=== PATIENT | male | born 1975 | race Caucasian/White ===

== ENCOUNTER → 2018-02-19 12:44 | Outpatient (CLI) | payer OTHER, SELFPAY ==
[2018-02-19 13:23] LABS: CPK Total, Creatine Kinase 231 U/L (39-308)
== END ==
PROVIDERS: Family Provider Family Medicine; PCP Family Medicine; Visit Provider Nurse Practitioner Family
DX: R07.9 Chest pain, unspecified (principal); R25.2 Cramp and spasm
CPT/HCPCS: 82550; 83735; 84484

== ENCOUNTER 2018-09-29 13:42 | Emergency (ER) | payer OTHER, SELFPAY ==
[2018-09-29 13:44] VITALS: BP 111/71; PULSE 83; RESP 18; TEMP 36.2; O2SAT 97; BMI 29.1
[2018-09-29 13:49] VITALS: BP 125/81; PULSE 75; RESP 16; O2SAT 97
--- NOTE | 2018-09-29 13:58 | EKG12_ITS ---
Test Reason : CP Blood Pressure : / mmHG Vent. Rate : 072 BPM Atrial Rate : 072 BPM P-R Int : 156 ms QRS Dur : 090 ms QT Int : 358 ms P-R-T Axes : -04 001 031 degrees QTc Int : 392 ms Normal sinus rhythm Moderate voltage criteria for LVH, may be normal variant Borderline ECG Confirmed by JW XIAO, JUVE ([id number]), dictionary editor ABEBE MITCHELL ([id number]) on 10/02/2018 1:02:38 PM Referred By: CAITLIN/MIRIAN Confirmed By:JUVE ESCALERA MD
--- NOTE | 2018-09-29 14:04 | ED.DCSUM_ITS ---
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 He denies any history of any change in his general health status or medications, he indicates he smokes marijuana occasionally does not use any illicit drugs or alcohol does smoke cigarettes, indicates he smoked marijuana 2 days ago temporally related to the sense of fatigue and sleeping a lot but he indicates marijuana normally does not cause him to be sleepy. He assures me he is having absolutely no cardiovascular symptoms of any kind his defibrillator has never fired Physical Examination: [] Blood pressure is 117/71 his pulse ox is 98% on room air he is afebrile General, no distress resting comfortably HEENT is generally unremarkable The neck is supple no adenopathy Cardiovascular, regular rate and rhythm Lungs, clear bilateral Abdomen, soft nontender Extremities, no clubbing cyanosis or edema Neurologic, awake alert answering questions appropriately moving all 4 extremities Test Results: [] Emergency Department Course and Treatment: [] he clinically looks well he is in no distress she has no specific complaints other than being fatigued and tired and sleeping excessively for 2 days, he does report he smoked marijuana the other day at this time screening labs will be obtained The patient's EKG chest x-ray and all of the labs are generally unremarkable please see those reports clinically remained stable here in the department I will back to reassess him there is no change in his status we discussed the long differential the fact that there is at this time no clear explanation for why he is been so sleepy, that he is awake and alert now with no neurologic cardiovascular pulmonary or any abnormalities that appeared on physical exam by history or by the workup I did explain he should probably avoid smoking the marijuana he will follow-up with his family doctors and all outpatient providers tomorrow and return for change in symptoms and is comfortable with this plan Treatment Plan: [] Disposition: [] Home stable Impression: [] Transient sleepiness etiology unclear history of CHF cardiac defibrillator This note was generated with [employer] dictation software. It may contain incorrect words, spelling, and punctuation that were not noted in review of the chart prior to signing ED Disposition - Plan for ED Patient: Chief Complaint: Fatigue Referrals: Tl Mitchell MD [Primary Care Provider] -
[2018-09-29] MEDS: Aspirin 81 MG TAB.CHEW 324 MG PO (14:12)
--- NOTE | 2018-09-29 14:20 | RAD_ITS ---
STUDY: X-RAY CHEST REASON FOR EXAM: Male, 43 years old. Fatigue. Chest pain and dizziness. TECHNIQUE: Single AP portable view of the chest. COMPARISON: 06/11/2017. FINDINGS: The lungs are clear and expanded. There is no demonstrated pleural abnormality. Normal size heart. ICD lead unchanged along the midline of the chest. Normal mediastinum and hemanth. Normal visualized pulmonary arteries. Normal visualized aortic arch and descending thoracic aorta. Normal visualized thoracic spine. Normal visualized ribs, clavicles, and shoulders. There is no demonstrated abnormality of the visualized soft tissue structures of the upper abdomen. RAD/Chest 1 View (Portable) IMPRESSION: No acute chest disease. Electronically Signed: Mau Tobar MD at 15:16 EST , Service support ,
[2018-09-29 14:25] LABS: Absolute Lymphocyte Count 1.68 X10^3/ul (0.83-4.51); Absolute Neutrophil Count 4.4 X10^3/uL (2.0-7.7); Basophil# 0.04 X10^3/uL; Basophil% 0.5 % (0-1); Eosinophil# 0.09 X10^3/uL; Eosinophils% 1.2 % (0-5); Hematocrit 45.4 % (40-54); Hemoglobin 15.6 g/dl (13.0-16.5); Lymphocyte # 1.68 X10^3/ul (4.0); Lymphocyte % 21.5 % (19-41); Mean Corp Hgb Conc 34.4 g/gl (32-36); Mean Corpuscular Hgb 31.3 pg (27.0-32.0); Mean Corpuscular Volume 91.2 fL (80-94); Mean Platelet Vol. 9.9 fl (6.2-12.0); Monocyte# 1.57 X10^3/uL; Monocyte% 20.1 % (0-10); Neutrophil # 4.38 X10^3/uL (2.7-7.7); Neutrophil % 56.1 % (47-70); Platelet Count 192 K/mm3 (150-450); RBC Distribution Width CV 12.9 % (11.6-14.6); RBC Distribution Width SD 42.6 fl (35.1-43.9); Red Blood Count 4.98 M/mm3 (4.6-6.2); White Blood Count 7.8 K/mm3 (4.4-11.0)
[2018-09-29 14:26] LABS: Differential Indicated SCAN CRITERIA MET; POSITIVE COUNT NO; POSITIVE DIFFERENTIAL YES; POSITIVE MORPHOLOGY YES
[2018-09-29 14:33] LABS: Anion Gap 8 (5-15); BUN 18 mg/dL (7-18); BUN/Creat Ratio 12.2 RATIO (10-20); Calcium,Total 8.9 mg/dL (8.5-10.1); Chloride 103 mmol/L (98-107); Creatinine, Serum 1.48 mg/dL (0.70-1.30); EST Glomerular Filtration Rate 55 mL/min (>60); Est Glom Filt Rate - Afr Amer 66 mL/min (>60); Estimated Creatinine Clearance 76.13 ml/min; Glucose 185 mg/dL (74-106); Potassium 4.3 mmol/L (3.5-5.1); Sodium Level 135 mmol/L (136-145)
[2018-09-29 14:52] LABS: Differential Comment SCANNED; Reactive Lymphocyte 1+
[2018-09-29 14:53] LABS: BNP,B-Type NATRIURETIC PEPTIDE 11.4 pg/mL (0-100)
--- NOTE | 2018-09-29 15:23 | ED.DEP ---
ED Disposition - Plan for ED Patient: Chief Complaint: Fatigue Instructions: ED Fainting Unkn Cause Referrals: Tl Mitchell MD [Primary Care Provider] - Additional Instructions: Please avoid smoking there were marijuana and taking any drugs or medications not provided by your providers, please follow-up with all of her outpatient providers tomorrow
[2018-09-29 15:54] VITALS: PULSE 89; RESP 14; O2SAT 98
== END 2018-09-29 15:55 | disposition home or self-care (01) ==
PROVIDERS: Emergency Provider Emergency Medicine; Family Provider Family Medicine; PCP Family Medicine
DX: R53.83 Other fatigue (principal); I50.9 Heart failure, unspecified; I42.9 Cardiomyopathy, unspecified; Z95.810 Presence of automatic (implantable) cardiac defibrillator; F12.90 Cannabis use, unspecified, uncomplicated; Z79.82 Long term (current) use of aspirin; Z79.899 Other long term (current) drug therapy
CPT/HCPCS: 71045; 80048; 83880; 84484; 85025; 93005; 99284; A4216

== ENCOUNTER 2020-02-05 01:51 | Emergency (ER) | payer OTHER, SELFPAY ==
[2020-02-05 01:51] VITALS: BP 145/94; PULSE 71; RESP 16; TEMP 37.1; O2SAT 98; BMI 28.1
[2020-02-05 01:55] VITALS: BP 145/94; PULSE 71; RESP 16; TEMP 37.1; O2SAT 98
--- NOTE | 2020-02-05 02:11 | ED.VIS.GEN ---
History of Present Illness Chief Complaint: Wound Informant: Patient Narrative: Stated for the last couple days has had some soreness on the upper part of his buttock. He has had this in the past. He has had this his whole life. He is never been told he has a pilonidal cyst. Is never had to be drained. Usually he is able to get it to go away with antibiotics. He has not had it inflamed in a while. He is never seen a surgeon. Current severity is mild. Worsened by touching it. Relieved by not touching it. No home treatment other than antibiotic cream and hydrocortisone cream. - Past Medical History (1) Acute coronary syndrome Status: Acute (2) CHF (congestive heart failure) Status: Acute (3) Cardiomyopathy Status: Acute (4) Diabetes Status: Chronic (5) HTN (hypertension) Status: Chronic (6) Hyperlipidemia Status: Chronic (7) Smoking greater than 20 pack years Status: Chronic (8) Noncompliance Status: Suspected Past Medical History - Allergies and Home Meds Allergies/Adverse Reactions: Allergies glyburide Allergy (Verified 09/29/18 13:43) Other Primary Care Physician: Tl Mitchell MD [Primary Care Provider] - Prior records reviewed: Yes Past Medical History: - - See problem list Surgical History: noncontributory Lives: With Family Smoking Status: Current every day smoker Alcohol: None Drugs: None - Family History Sibling Family History: Reports: Heart Disease, - - heart transplant Review of Systems General: Denies: Chills, Fever, Sweats Eyes: Denies: Visual changes - bilaterally, Diplopia ENT: Denies: Rhinorrhea, Sore throat Cardiovascular: Denies: Chest pain, Palpitations Respiratory: Denies: Dyspnea, Cough, Dyspnea on exertion Gastrointestinal: Denies: Abdominal pain, Nausea, Vomiting, Diarrhea, Melena, Hematochezia Genitourinary: Denies: Dysuria, Hematuria, Frequency Musculoskeletal: Denies: Back pain, Extremity Pain Skin: Reports: - - See HPI. Denies: Rash, Wounds Neurological: Denies: Headache, Weakness, Numbness Physical Exam Vital Signs/Narrative: Vital Signs Temp Pulse Resp BP Pulse Ox 02/05/20 01:55 98.8 F 71 16 145/94 H 98 02/05/20 01:51 98.8 F 71 16 145/94 H 98 General: Well nourished, Well developed, No Acute Distress Head: Normocephalic, Atraumatic Eyes: Perrl, EOMI ENT: Moist mucous membranes, No rhinorrhea Neck: Supple, Nontender Cardiovascular: Regular rate, Regular rhythm, No murmurs Respiratory: No distress, CTA bilaterally, Chest nontender Abdomen: Soft, Nontender, Nondistended, Normal bowel sounds Rectal: - - The patient has a remnant of a pilonidal cyst with mild soreness to palpation on the central region. There is no distinct abscess induration or fluctuance. There is no cellulitis or warmth Back: Nontender, Normal Inspection Extremities: Nontender, No edema Skin: Normal color, No rash Neurological: Alert, Oriented x3, Cranial nerves II-XII grossly intact, Normal Strength, Normal Sensation Psychological: Normal affect, Normal Mood Diagnostic/Tx/Re-eval - Medical Decision Making I feel the patient likely has an infected early pilonidal cyst causing pain. He stated it normally does not hurt unless it gets infected. I discussed incision and drainage with the patient. However there is no fluctuance induration or redness. He would like to hold off on this understands the risk of doing that includes it getting worse. He stated it usually goes away with antibiotics. Given Bactrim. Will be given a surgery referral for possible pilonidal cyst removal after this heals up. He will return if it worsens ED Disposition - Plan for ED Patient: Disposition: Home or Assisted Living Diagnosis: Infected pilonidal cyst Instructions: ED Cyst Pilonidal Infec Abx Only Prescriptions: Smz/Tmp Ds [Bactrim Ds] 1 tab PO BID #20 tab Transmission Status: Pending to [id number] Referrals: Rebekah Mcqueen MD [STAFF PHYSICIAN] -
[2020-02-05] MEDS: Smz/Tmp Ds Tablet 1 TABLET PO (02:14)
[2020-02-05 02:16] VITALS: BP 145/94; PULSE 71; RESP 16; O2SAT 98
== END 2020-02-05 02:17 | disposition home or self-care (01) ==
LOC: ED 02:16
PROVIDERS: Emergency Provider Emergency Medicine; PCP Family Medicine
DX: L05.91 Pilonidal cyst without abscess (principal); I11.0 Hypertensive heart disease with heart failure; I50.9 Heart failure, unspecified; E11.9 Type 2 diabetes mellitus without complications; F17.200 Nicotine dependence, unspecified, uncomplicated
CPT/HCPCS: 99283

== ENCOUNTER 2021-08-29 18:29 | Emergency (ER) | payer OTHER, SELFPAY ==
[2021-08-29 18:31] VITALS: BP 170/89; PULSE 70; RESP 20; TEMP 36.8; O2SAT 100; BMI 27.0
--- NOTE | 2021-08-29 19:00 | EKG12_ITS ---
Test Reason : OD Blood Pressure : / mmHG Vent. Rate : 074 BPM Atrial Rate : 074 BPM P-R Int : 130 ms QRS Dur : 098 ms QT Int : 378 ms P-R-T Axes : 000 010 037 degrees QTc Int : 419 ms Normal sinus rhythm Normal ECG Confirmed by JW XIAO, JUVE ([id number]), pictures editor AFIA SUGGS ([id number]) on 08/30/2021 9:25:01 AM Referred By: Confirmed By:JUVE ESCALERA MD
[2021-08-29 19:32] LABS: Absolute Neutrophil Count 7.6 X10^3/uL (2.0-7.7); Basophil# 0.07 X10^3/uL; Basophil% 0.7 % (0-1); Eosinophil# 0.12 X10^3/uL; Eosinophils% 1.2 % (0-5); Hemoglobin 16.7 g/dL (13.0-16.5); Lymphocyte % 15.6 % (19-41); Mean Corp Hgb Conc 34.8 g/dL (32-36); Mean Corpuscular Hgb 30.9 pg (27.0-32.0); Mean Corpuscular Volume 88.9 fL (80-94); Mean Platelet Vol. 9.3 fl (6.2-12.0); Monocyte# 0.77 X10^3/uL; Monocyte% 7.5 % (0-10); NRBC Flagged by Analyzer 0 % (0-5); Neutrophil # 7.59 X10^3/uL (2.7-7.7); Neutrophil % 74.2 % (47-70); Platelet Count 247 K/mm3 (150-450); RBC Distribution Width CV 12.6 % (11.6-14.6); RBC Distribution Width SD 41.1 fl (35.1-43.9); White Blood Count 10.2 K/mm3 (4.4-11.0)
[2021-08-29 19:35] VITALS: BP 152/60; PULSE 72; RESP 16; O2SAT 100
--- NOTE | 2021-08-29 19:38 | EDS_ITS ---
HPI History of Present Illness Chief Complaint: Overdose Informant: patient and EMS Narrative Narrative: 46-year-old male states about a 1-1/2 hours prior to arrival he injected what he thought was heroin. He sustained a overdose. EMS administered Narcan and the patient woke up. He states he is having difficulty breathing due to filling up and he is having diarrhea. The patient is extremely vague in his answers. Is difficult for him to tell me anything as he is not forthcoming with information. 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 He has a history of CHF. He is on Lasix spironolactone as well as metoprolol lisinopril. She tells me he has never had a heart attack or required cardiac stents. PFSH PFSH Medical History Cardiac defibrillator in place Cardiomyopathy CHF (congestive heart failure) Diabetes HTN (hypertension) Hyperlipidemia Noncompliance Smoking greater than 20 pack years Home Medications furosemide 40 mg PO DAILY 06/11/17 [History Last Taken 09/29/18] lisinopril [Prinivil] 10 mg PO DAILY 06/11/17 [History Last Taken 09/29/18] metoprolol tartrate 100 mg PO DAILY 06/11/17 [History Last Taken 09/29/18] spironolactone 25 mg PO DAILY 06/11/17 [History Last Taken 09/29/18] sulfamethoxazole-trimethoprim 1 tab PO BID #20 tab 02/05/20 [Rx Last Taken Unknown] Allergy/AdvReac Type Severity Reaction Status Date / Time glyburide Allergy Other Verified 09/29/18 13:43 Social History (Updated 08/29/21 @ 19:[address] Hayes Powell, ) Smoking Status: Current every day smoker tobacco type: cigarettes substance use type: heroin and IV drugs ROS ROS ED Constitutional Constitutional ED: Denies chills or weight loss Eyes Eyes: Denies change in vision or diplopia ENT ENT ED: Denies ear pain, rhinorrhea or sore throat Cardiovascular Cardiovascular: Denies chest pain, orthopnea, palpitations or racing heartbeat Respiratory/Chest Respiratory/Chest: Reports dyspnea; Denies cough or orthopnea Gastrointestinal Gastrointestinal: Reports diarrhea; Denies abdominal pain, nausea or vomiting Genitourinary Genitourinary ED: Denies dysuria, hematuria or urinary frequency Musculoskeletal Musculoskeletal: Reports myalgias; Denies arthralgias Integumentary Denies abscess or rash Neurologic Neurologic: Denies headache(s) or weakness Psychiatric Psychiatric: Denies anxiety, depression, suicidal ideation or suicidal thoughts Endocrine Endocrinology: Denies polydipsia, polyphagia or polyuria Allergic/Immunologic Allergic/Immunologic ED: Denies mouth swelling, tongue swelling or urticaria EXAM Physical Exam Const Vital Signs: 08/29/21 18:31 08/29/21 18:36 08/29/21 19:35 Temperature 98.3 F Temperature Source Temporal Pulse Rate 70 72 Respiratory Rate 20 H 16 Respiratory Pattern Normal Blood Pressure 170/89 H 152/60 H Blood Pressure Mean 116 90 Pulse Ox 100 100 Oxygen Delivery Method Room Air Nasal Cannula Oxygen Flow Rate (L/min) 2 Positive well nourished and well developed General Appearance ED: well developed HEENT Reports normocephalic, head/scalp atraumatic and moist mucous membranes Eyes PERRL and EOMs intact bilaterally Neck no lymphadenopathy, supple and no JVD Resp normal respiratory effort and clear to auscultation bilaterally Resp Narrative: Patient is unable to sit up and let me listen to his lungs posteriorly as he states he has a large amount of diarrhea between his legs. Cardio regular rate, regular rhythm and no murmurs GI normal to inspection, nondistended, normoactive bowel sounds and non-tender Palpation: soft Back/Spine no CVA tenderness and normal ROM Extremity normal to inspection General Extremety ED: Negative for edema General Extremity: Negative for edema Neuro oriented x3 and CN's II-XII intact bilaterally Sensorium / Orientation: alert Motor Exam: strength 5/5 throughout Psych Psych Narrative: Patient makes no effort to open his eyes and talk with me and turns away from me. Mood & Affect: Negative for depressed or tearful Skin no rashes or lesions noted and no wounds MDM MDM MDM Narrative Medical decision making narrative: The patient had his mother clean up his diarrhea. Basic blood work is negative except for creatinine of 1.88. His beta natruretic peptide is 9.3. My interpretation of the chest x-ray is no acute process. Patient is going to be able to go to the bathroom finished cleaning himself up. I will refer him to 180. He seems rather disinterested in anything I have to say and does not acknowledge what I am telling him. Lab Data Attestation: I reviewed the patient's lab results. Labs: Laboratory Results - last 24 hr 08/29/21 08/29/21 08/29/21 19:16 19:16 19:16 WBC 10.2 RBC 5.40 Hgb 16.7 H Hct 48.0 MCV 88.9 MCH 30.9 MCHC 34.8 RDW Std Deviation 41.1 RDW Coeff of Mary 12.6 Plt Count 247 MPV 9.3 Immature Gran % (Auto) 0.800 Neut % (Auto) 74.2 H Lymph % (Auto) 15.6 L Kent[place] % (Auto) 7.5 Eos % (Auto) 1.2 Baso % (Auto) 0.7 Absolute Neuts (auto) 7.6 Absolute Lymphs (auto) 1.60 Nucleated RBC % 0 Sodium 136 Potassium 3.8 Chloride 104 Carbon Dioxide 22.0 Anion Gap 10 BUN 14 Creatinine 1.88 H Estim Creat Clear Calc 56.48 Est GFR (MDRD) Af Amer 50 L Est GFR (MDRD) Non-Af 41 L BUN/Creatinine Ratio 7.4 L Glucose 162 H Calcium 10.2 H B-Natriuretic Peptide 9.3 EKG Initial EKG: Attestation: I personally reviewed and interpreted this EKG as follows: Comments: Normal sinus rhythm with a ventricular rate of 74 bpm. No concerning features of ACS or ectopy noted Discharge Plan Triage Chief Complaint: Overdose ED Provider: Hayes Powell Dx/Rx/DC Orders Clinical Impression: Opiate overdose, Opiate withdrawal, Cardiomyopathy Instructions: ED Opiate Abuse Prescriptions: No Action furosemide 20 MG tablet 40 mg PO DAILY RF: 0 lisinopril [Prinivil] 10 MG tablet 10 mg PO DAILY RF: 0 metoprolol tartrate 75 MG tablet 100 mg PO DAILY RF: 0 spironolactone 25 MG tablet 25 mg PO DAILY RF: 0 sulfamethoxazole-trimethoprim 1 TABLET tablet 1 tab PO BID Qty: 20 RF: 0 Primary Care Provider: Tl Mitchell Referrals: Tl Mitchell MD [Primary Care Provider] - As soon as possible [facility] [STAFF PHYSICIAN] - As soon as possible Disposition Disposition: Home, Self Care
[2021-08-29 19:44] LABS: Anion Gap 10 (5-15); BUN 14 mg/dL (7-18); BUN/Creat Ratio 7.4 RATIO (10-20); Calcium,Total 10.2 mg/dL (8.5-10.1); Chloride 104 mmol/L (98-107); Creatinine, Serum 1.88 mg/dL (0.70-1.30); EST Glomerular Filtration Rate 41 mL/min (>60); Est Glom Filt Rate - Afr Amer 50 mL/min (>60); Estimated Creatinine Clearance 56.48 ml/min; Glucose 162 mg/dL (74-106); Potassium 3.8 mmol/L (3.5-5.1); Sodium Level 136 mmol/L (136-145)
--- NOTE | 2021-08-29 19:48 | RAD_ITS ---
INDICATION: dyspnea EXAMINATION/TECHNIQUE: X-RAY - XR Chest 1 View COMPARISON: 09/29/2018 FINDINGS: The lungs are clear. The cardiomediastinal silhouette is unremarkable. Left-sided cardiac device. No pleural effusion or pneumothorax. No acute osseous abnormalities. RAD/Chest 1 View (Portable) IMPRESSION: No acute radiographic abnormalities. Electronically Signed: Alli Caraballo MD at 20:38 EDT Tel , Service support ,
[2021-08-29 19:55] LABS: BNP,B-Type NATRIURETIC PEPTIDE 9.3 pg/mL (0-100)
[2021-08-29 20:33] VITALS: BP 161/81; RESP 16
== END 2021-08-29 20:35 | disposition home or self-care (01) ==
PROVIDERS: Emergency Provider Emergency Medicine; PCP Family Medicine
DX: F11.23 Opioid dependence with withdrawal (principal); I42.9 Cardiomyopathy, unspecified; E11.9 Type 2 diabetes mellitus without complications; E78.5 Hyperlipidemia, unspecified; I11.0 Hypertensive heart disease with heart failure; I50.9 Heart failure, unspecified; Z95.810 Presence of automatic (implantable) cardiac defibrillator; Z79.84 Long term (current) use of oral hypoglycemic drugs; Z79.899 Other long term (current) drug therapy; F17.210 Nicotine dependence, cigarettes, uncomplicated
CPT/HCPCS: 71045; 80048; 83880; 85025; 93005; 99285

== ENCOUNTER 2023-01-18 12:01 | Emergency (ER) | payer OTHER, SELFPAY ==
[2023-01-18 12:02] VITALS: BP 191/114; PULSE 115; RESP 22; TEMP 36.2; O2SAT 100; BMI 31.7
[2023-01-18] MEDS: 0.9% Normal Saline 1,000 ML 1000 ML IV (12:13)
[2023-01-18 12:16] VITALS: BP 184/108; PULSE 113; RESP 18; O2SAT 99
--- NOTE | 2023-01-18 12:19 | EX.ED.DYSGE1 ---
HPI History of Present Illness Chief Complaint: Overdose Narrative Narrative: Patient is a 47-year-old male with a history of CHF who has an ICD, CAD, hypertension, lipidemia presents to the emergency department after a potential overdose. Patient does have a history of snorting fentanyl. Patient was found by family members to be under responsive in the bathroom. Family gave the patient Narcan, called the ambulance and the ambulance then gave the patient Narcan. Patient arrives alert and orient x3 however he states he is unsure what happened today and states that he did not use any illicit substances. Patient only complaint is a dry mouth and feeling sleepy. Patient's vital signs are stable. [facility] Medical History Cardiac defibrillator in place Cardiomyopathy CHF (congestive heart failure) Diabetes HTN (hypertension) Hyperlipidemia Noncompliance Overdose Smoking greater than 20 pack years Home Medications furosemide 20 mg tablet 40 mg PO DAILY 06/11/17 [History Last Taken 09/29/18] lisinopril 10 mg tablet (Prinivil) 10 mg PO DAILY 06/11/17 [History Last Taken 09/29/18] metoprolol tartrate 75 mg tablet 100 mg PO DAILY 06/11/17 [History Last Taken 09/29/18] spironolactone 25 mg tablet 25 mg PO DAILY 06/11/17 [History Last Taken 09/29/18] carvedilol 12.5 mg tablet (Coreg) 12.5 mg PO BID 01/18/23 [History Last Taken Unknown] Allergy/AdvReac Type Severity Reaction Status Date / Time glyburide Allergy Other Verified 01/18/23 12:10 Social History (Updated 08/29/21 @ 19:[address] Hayes Powell, ) Smoking Status: Current every day smoker tobacco type: cigarettes substance use type: heroin and IV drugs ROS ROS ED ROS Narrative Constitutional: Negative for fever, chills, weight loss. Eyes: Negative for vision loss, vision change, double vision ENT: Negative for any sore throat, ear pain, congestion. Positive for dry mouth Cardiovascular: Negative for any chest pain, tightness, palpitations Respiratory: Negative for any cough, sputum production, hemoptysis, dyspnea, dyspnea on exertion, orthopnea Gastrointestinal: Negative for any abdominal pain, nausea, vomiting, diarrhea, constipation, blood in stool, blood in vomit : Negative for any urinary frequency, dysuria, retention, blood in urine Muscle skeletal: Negative for any muscle joint pain, stiffness, myalgias, arthralgias, neck pain, back pain Neurological: Negative for any headache, syncope, numbness or tingling, dizziness Skin: Negative for any rashes, lumps, itching, abrasions, lacerations Psychiatric: Negative for any depression, anxiety, stress, suicidal ideation, homicidal ideation Hematologic: Negative for any easy bruising, excessive bruising, easy bleeding Allergies: Negative for any eczema, hives, rash EXAM Physical Exam Narrative Exam Narrative: Vital signs reviewed. Patient is alert and oriented however he is slightly lethargic. Patient is maintaining his airway. Patient is answering questions appropriately however he does not remember what happened today. He did used to use fentanyl, his last dose that he remembers taking was in October. HEET: Head normocephalic atraumatic, TMs clear bilaterally. Posterior pharynx is clear, moist mucous membranes. Nares clear bilaterally. Neck: Supple with no lymphadenopathy or tenderness. No signs of meningismus, negative jolt sign. Cardiac: Tachycardic rate and rhythm no murmurs gallops or rubs, equal peripheral pulses bilaterally. Respiratory: Lungs clear to auscultation bilaterally. No chest tenderness. Abdomen: Soft, nontender, nondistended. No abdominal bruit or pulsatile masses. No hepatosplenomegaly Extremities: No peripheral edema, no signs of gross trauma or deformity. Active full range of motion of all extremities. Neuro: Cranial nerves II through XII intact, no focal neurological deficits. Skin: Clean dry and intact with no rash, purpura, petechiae, vesicles or pustules. Backs/flank: No CVA tenderness, no midline spinal tenderness, no deformity. Psych: Normal mood and affect. No SI, HI or acute psychosis. Const Vital Signs: 01/18/23 12:02 01/18/23 12:16 Temperature 97.1 F L Temperature Source Temporal Pulse Rate 115 H 113 H Respiratory Rate 22 H 18 Blood Pressure 191/114 H 184/108 H Blood Pressure Mean 139 133 Pulse Ox 100 99 Oxygen Delivery Method Room Air Room Air Positive well nourished and well developed General Appearance ED: well developed MDM MDM Lab Data Attestation: I reviewed the patient's lab results. Labs: Laboratory Results - last 24 hr 01/18/23 01/18/23 12:16 12:16 WBC 8.3 RBC 4.03 L Hgb 12.9 L Hct 37.9 L MCV 94.0 MCH 32.0 MCHC 34.0 RDW Std Deviation 44.7 H RDW Coeff of Mary 12.9 Plt Count 251 MPV 9.5 Immature Gran % (Auto) 2.500 H Neut % (Auto) 51.2 Lymph % (Auto) 30.8 [place] % (Auto) 12.2 H Eos % (Auto) 2.2 Baso % (Auto) 1.1 H Absolute Neuts (auto) 4.2 Absolute Lymphs (auto) 2.55 Nucleated RBC % 0 Sodium 138 Potassium 4.5 Chloride 108 H Carbon Dioxide 22.0 Anion Gap 8 BUN 23 H Creatinine 1.85 H Estim Creat Clear Calc 56.77 Est GFR (MDRD) Af Amer 50 L Est GFR (MDRD) Non-Af 42 L BUN/Creatinine Ratio 12.4 Glucose 230 H Calcium 8.1 L Radiography Diagnostic Testing: Clinical Impression(s) from Imaging Studies Chest X-Ray 01/18/23 12:20 IMPRESSION: Stable examination. Electronically Signed: Jassi Dallas MD at 12:34 EST , EKG Sinus tachycardia: Attestation: I personally reviewed and interpreted this EKG as follows: Comments: Sinus tachycardia, rate 110 bpm, MN interval 160 ms, QRS duration 88 ms, no acute ST elevation, no acute infarct noted. Reviewed by ER attending Differential Diagnosis Chest pain/SOB: pneumonia Differential Diagnosis: Head injury Why less likely: No signs of trauma Treatment and Re-Evaluation :: All radiologic examinations were read, reviewed by the emergency department attending. From these reads, a plan of care will be put in place. Patient on initial arrival was slightly lethargic, patient's vital signs are stable, patient maintained his airway. It is evident that the patient overdosed, he is not admitting to it however patient does have history of fentanyl abuse, Narcan did awaken the patient. Patient vital signs are stable. Patient did not require any additional Narcan. Patient's laboratory studies showed a stable CBC, patient's chemistries were stable, he does have what appears to be chronic kidney disease with a creatinine of 1.85 however this has been ongoing since the year 2017. Patient's blood glucose was elevated 230 however this is baseline for the patient. On reassessment, the patient was feeling better, the patient did have one episode of vomitus however did not want any medications for this. I did speak with the patient at length regarding drug abuse, I asked if he would like any drug counseling or to be admitted to the hospital today, he simply replied no. He does not want any drug treatment at this time. After watching the patient for an 1 hour here, he is refusing other treatment, at this time, talking with the patient, the patient is eating and drinking, the patient is acting appropriate walking around the room, believe the patient is stable for discharge. He was given return precautions. He was educated regarding the dangers of drug abuse, he verbally understands, he is stable for discharge. Discharge Plan Triage Chief Complaint: Overdose ED Midlevel Provider: Willian Stevens ED Provider: Willian Koch Dx/Rx/DC Orders Clinical Impression: Overdose, Chronic kidney disease, Hyperglycemia, unspecified Instructions: ED Overdose, Opiate Prescriptions: No Action furosemide 20 MG tablet 40 mg PO DAILY lisinopril [Prinivil] 10 MG tablet 10 mg PO DAILY metoprolol tartrate 75 MG tablet 100 mg PO DAILY spironolactone 25 MG tablet 25 mg PO DAILY carvedilol [Coreg] 12.5 mg Tablet 12.5 mg PO BID Rx Instructions: must administer with a meal/food Primary Care Provider: Tl Mitchell Referrals: Tl Mitchell MD [Primary Care Provider] - Activity Restrictions/Additional Instructions: If you feel that you need treatment [facility] can help, reach out to your PCP. Disposition Disposition: Home, Self Care
--- NOTE | 2023-01-18 12:20 | RAD_ITS ---
STUDY: X-RAY CHEST REASON FOR EXAM: Male, 47 years old. Cough TECHNIQUE: Single AP portable view of the chest. COMPARISON: Comparison is made with prior study August 29, 2021. FINDINGS: EKG electrodes are seen. The lungs are clear and expanded. There is no demonstrated pleural abnormality. Normal size heart. Left-sided cardiac pacemaker is seen and is unchanged. Normal mediastinum and hemanth. Normal visualized pulmonary arteries. Normal visualized aortic arch and descending thoracic aorta. There are diffuse degenerative changes of the visualized thoracic spine. Normal visualized ribs, clavicles, and shoulders. There is no demonstrated abnormality of the visualized soft tissue structures of the upper abdomen. RAD/Chest 1 View (Portable) IMPRESSION: Stable examination. Electronically Signed: Jassi Dallas MD at 12:34 EST ,
[2023-01-18 12:30] LABS: Absolute Lymphocyte Count 2.55 X10^3/uL (0.83-4.51); Absolute Neutrophil Count 4.2 X10^3/uL (2.0-7.7); Basophil# 0.09 X10^3/uL; Basophil% 1.1 % (0-1); Eosinophil# 0.18 X10^3/uL; Eosinophils% 2.2 % (0-5); Hematocrit 37.9 % (40-54); Hemoglobin 12.9 g/dL (13.0-16.5); Lymphocyte # 2.55 X10^3/ul (0.83-4.51); Lymphocyte % 30.8 % (19-41); Mean Platelet Vol. 9.5 fl (6.2-12.0); Monocyte# 1.01 X10^3/uL; Monocyte% 12.2 % (0-10); NRBC Flagged by Analyzer 0 % (0-5); Neutrophil # 4.23 X10^3/uL (2.7-7.7); Neutrophil % 51.2 % (47-70); Platelet Count 251 K/mm3 (150-450); RBC Distribution Width CV 12.9 % (11.6-14.6); RBC Distribution Width SD 44.7 fl (35.1-43.9); Red Blood Count 4.03 M/mm3 (4.6-6.2); White Blood Count 8.3 K/mm3 (4.4-11.0)
--- NOTE | 2023-01-18 12:35 | ED.RN ---
Pt up to side of bed vomiting at this time. Willian TANK TENDER notified. Order given for zofran. Pt refusing zofran stating Im fine
[2023-01-18 12:37] LABS: Anion Gap 8 (5-15); BUN 23 mg/dL (7-18); BUN/Creat Ratio 12.4 RATIO (10-20); Calcium,Total 8.1 mg/dL (8.5-10.1); Chloride 108 mmol/L (98-107); Creatinine, Serum 1.85 mg/dL (0.70-1.30); EST Glomerular Filtration Rate 42 mL/min (>60); Est Glom Filt Rate - Afr Amer 50 mL/min (>60); Estimated Creatinine Clearance 56.77 ml/min; Glucose 230 mg/dL (74-106); Potassium 4.5 mmol/L (3.5-5.1); Sodium Level 138 mmol/L (136-145)
[2023-01-18 13:03] VITALS: BP 163/106
[2023-01-18 13:04] VITALS: BP 163/109
== END 2023-01-18 13:05 | disposition home or self-care (01) ==
PROVIDERS: Nurse Practitioner; Emergency Provider Emergency Medicine; PCP Family Medicine; Visit Provider Emergency Medicine
DX: T65.94XA Toxic effect of unspecified substance, undetermined, initial encounter (principal); I42.9 Cardiomyopathy, unspecified; I13.0 Hypertensive heart and chronic kidney disease with heart failure and stage 1 through stage 4 chronic kidney disease, or unspecified chronic kidney disease; I50.9 Heart failure, unspecified; N18.9 Chronic kidney disease, unspecified; I25.10 Atherosclerotic heart disease of native coronary artery without angina pectoris; F17.210 Nicotine dependence, cigarettes, uncomplicated; Z79.899 Other long term (current) drug therapy; Z95.810 Presence of automatic (implantable) cardiac defibrillator
CPT/HCPCS: 71045; 80048; 85025; 93005; 96360; 99285; A4216

== ENCOUNTER 2024-08-26 17:36 | Emergency (ER) | payer OTHER, SELFPAY ==
[2024-08-26] VITALS (7 sets, daily range): BP systolic 157–186; BP diastolic 65–129; PULSE 52–57; RESP 14–26; TEMP 37.2–38.4; O2SAT 98–100; BMI 25.8
--- NOTE | 2024-08-26 17:51 | EKG12_ITS ---
Test Reason : ALT LOC Blood Pressure : / mmHG Vent. Rate : 051 BPM Atrial Rate : 051 BPM P-R Int : 142 ms QRS Dur : 088 ms QT Int : 434 ms P-R-T Axes : 005 036 -18 degrees QTc Int : 400 ms Sinus bradycardia Minimal voltage criteria for LVH, may be normal variant ( Sokolow-Mi ) ST & T wave abnormality, consider inferior ischemia Abnormal ECG Confirmed by Guilherme Moraes ([id number]), editor in chief AFIA SUGGS ([id number]) on 08/27/2024 9:33:35 AM Referred By: Confirmed By:Guilherme Moraes
--- NOTE | 2024-08-26 17:51 | CT_ITS ---
We are attempting to reach an attending provider to discuss findings. An addendum with communication details will be sent when the communication is complete. STUDY: CT BRAIN WITHOUT CONTRAST REASON FOR EXAM: Male, 49 years old. mental status change, fall RADIATION DOSAGE (If Supplied By Facility): CTDIvol = ( 44.99 ) mGy, DLP = ( 897.35 ) mGycm TECHNIQUE: Transaxial CT imaging of the brain was performed without administration of intravenous contrast material. Individualized dose optimization techniques were used for this CT. COMPARISON: No relevant priors. FINDINGS: Normal soft tissue structures. Normal calvarium. Normal size ventricles and extra-axial spaces for the patient''s age. Nonspecific diffuse hypoattenuation within the parietal lobes bilaterally of indeterminate etiology producing extrinsic compression upon the occipital horns of the lateral ventricles possibly representing posttraumatic edema or ischemic changes... Normal basal ganglia and thalami. Normal brainstem. Normal cerebellum. Partial empty sella deformity likely of no significance There is no intracranial hemorrhage. There are no findings of an acute ischemic infarction. Normal visualized paranasal sinuses. CT/Brain/Head without Contrast IMPRESSION: Findings suggestive of the diffuse nonspecific edematous changes of the parietal lobes bilaterally possibly posttraumatic although ischemic changes not excluded. MRI recommended for further evaluation No evidence for acute hemorrhage Electronically Signed: Miguel Maloney MD at 18:35 EDT ,
--- NOTE | 2024-08-26 17:51 | RAD_ITS ---
STUDY: X-RAY CHEST REASON FOR EXAM: Male, 49 years old. fall TECHNIQUE: AP portable COMPARISON: January 18, 2023. FINDINGS: The lungs are clear and expanded. There is no demonstrated pleural abnormality. Normal size heart. Normal mediastinum and hemanth. Normal visualized pulmonary arteries. Normal visualized aortic arch and descending thoracic aorta. Cardiac pacemaker is noted Normal visualized thoracic spine. Normal visualized ribs, clavicles, and shoulders. There is no demonstrated abnormality of the visualized soft tissue structures of the upper abdomen. RAD/Chest 1 View (Portable) IMPRESSION: No acute cardiopulmonary pathology Electronically Signed: Miguel Maloney MD at 18:36 EDT ,
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
[2024-08-26 17:59] LABS: Absolute Lymphocyte Count 1.23 X10^3/uL (0.83-4.51); Absolute Neutrophil Count 13.2 X10^3/uL (2.0-7.7); Basophil# 0.05 X10^3/uL; Basophil% 0.3 % (0-1); Eosinophil# 0.03 X10^3/uL; Eosinophils% 0.2 % (0-5); Hematocrit 54.5 % (40-54); Hemoglobin 19.1 g/dL (13.0-16.5); Lymphocyte # 1.23 X10^3/ul (0.83-4.51); Lymphocyte % 7.5 % (19-41); Mean Corpuscular Hgb 32.8 pg (27.0-32.0); Mean Corpuscular Volume 93.6 fL (80-94); Mean Platelet Vol. 9.2 fl (6.2-12.0); Monocyte# 1.72 X10^3/uL; Monocyte% 10.5 % (0-10); NRBC Flagged by Analyzer 0 % (0-5); Neutrophil # 13.22 X10^3/uL (2.7-7.7); Neutrophil % 80.6 % (47-70); POSITIVE DIFFERENTIAL YES; Platelet Count 311 K/mm3 (150-450); RBC Distribution Width CV 12.8 % (11.6-14.6); RBC Distribution Width SD 43.9 fl (35.1-43.9); Red Blood Count 5.82 M/mm3 (4.6-6.2); White Blood Count 16.4 K/mm3 (4.4-11.0)
[2024-08-26 18:01] LABS: Differential Indicated SCAN CRITERIA MET
[2024-08-26 18:12] LABS: Alcohol, Blood (Medical)-Serum < 3.0 mg/dL
[2024-08-26] MEDS: 0.9% Normal Saline (1000mL) 1,000 ML 1000 ML IV (18:13)
[2024-08-26 18:18] LABS: ALB/GLOB Ratio 0.8 RATIO (0.9-2.4); AST(SGOT) 23 U/L (15-37); Alanine Aminotransfer ALT/SGPT 19 U/L (16-61); Alkaline Phosphatase 118 U/L (45-117); Anion Gap 9 (5-15); BUN 18 mg/dL (7-18); BUN/Creat Ratio 10.8 RATIO (10-20); Calcium,Total 10.1 mg/dL (8.5-10.1); Chloride 104 mmol/L (98-107); Creatinine, Serum 1.66 mg/dL (0.70-1.30); EST Glomerular Filtration Rate 47 mL/min (>60); Est Glom Filt Rate - Afr Amer 57 mL/min (>60); Globulin 5.1 g/dL (2.2-4.2); Glucose 159 mg/dL (74-106); Potassium 4.3 mmol/L (3.5-5.1); Protein, Total 9.1 g/dL (6.4-8.2); Sodium Level 137 mmol/L (136-145); Troponin-I HS 66 pg/mL (3.0-78.0)
--- NOTE | 2024-08-26 18:23 | CT_ITS ---
STUDY: CT CERVICAL SPINE WITHOUT CONTRAST REASON FOR EXAM: Male, 49 years old. fall RADIATION DOSAGE (If Supplied By Facility): CTDIvol = ( 25.38 ) mGy, DLP = ( 600.60 ) mGycm TECHNIQUE: High resolution transaxial imaging was performed without contrast material. Sagittal and coronal images were reconstructed. Individualized dose optimization techniques were used for this CT. COMPARISON: None FINDINGS: Normal craniovertebral junction. Normal anterior atlantoaxial articulation. Normal odontoid process. Normal cervical lordosis. Normal vertebral bodies and posterior osseous elements. C2-3: Normal endplates. Normal disc height and morphology. Normal central canal and intervertebral neuroforamina. C3-4: Normal endplates. Normal disc height and morphology. Normal central canal and mild left neural foraminal encroachment secondary to bony hypertrophy C4-5: Normal endplates. Normal disc height and morphology. Normal central canal and mild left neural foraminal encroachment secondary to bony hypertrophy C5-6: Normal endplates. Normal disc height and morphology. Normal central canal and intervertebral neuroforamina. C6-7: Normal endplates. Normal disc height and morphology. Normal central canal and intervertebral neuroforamina. C7-T1: Normal endplates. Normal disc height and morphology. Normal central canal and intervertebral neuroforamina. Normal visualized soft tissue structures. Incidental finding of tiny calcified granuloma in right apex CT/Spine Cervical without Contras IMPRESSION: Mild degenerative changes. No acute fracture or other significant bony pathology. Electronically Signed: Miguel Maloney MD at 19:39 EDT ,
[2024-08-26 18:28] LABS: Anisocytosis 1+; Hypersegmented Neutrophils 1+; Polychromasia RARE
[2024-08-26] MEDS: Thiamine Hydrochloride 100 MG in 0.9% Normal Saline (50mL Bag) 50 ML 200 MG IV (20:21)
[2024-08-26 20:48] LABS: Amphetamine Urine VISTA POSITIVE (<1000 ng/mL); Barbiturate Urine VISTA NEGATIVE (< 200 ng/mL); Benzodiazepine Urine VISTA POSITIVE (< 200 ng/mL); Cocaine Urine VISTA NEGATIVE (< 300 ng/mL); Ecstacy Urine VISTA NEGATIVE (< 500 ng/mL); Methadone Urine VISTA NEGATIVE (< 300 ng/mL); PCP Urine VISTA NEGATIVE (< 25 ng/mL); THC Urine VISTA POSITIVE (< 50 ng/mL); Vista UDS pH Range 5
[2024-08-26] MEDS: Folic Acid 1 MG in 0.9% Normal Saline (50mL Bag) 50 ML 200 MG IV (20:52)
[2024-08-26] MEDS: Acetaminophen 650 MG Suppository RC (21:43)
[2024-08-27 15:02] LABS: Pathologist Review Reviewed
[2024-09-02 18:08] LABS: Vitamin B1, Thiamine 128.3 nmol/L (66.5-200.0)
== END 2024-08-26 22:00 | disposition other institution (70) ==
PROVIDERS: Emergency Provider Emergency Medicine; PCP Family Medicine; Visit Provider Emergency Medicine
DX: R41.82 Altered mental status, unspecified (principal); G93.6 Cerebral edema; I11.0 Hypertensive heart disease with heart failure; I50.9 Heart failure, unspecified; E11.9 Type 2 diabetes mellitus without complications; E78.5 Hyperlipidemia, unspecified; Z95.810 Presence of automatic (implantable) cardiac defibrillator; Z79.899 Other long term (current) drug therapy; F17.210 Nicotine dependence, cigarettes, uncomplicated; D72.829 Elevated white blood cell count, unspecified; F10.10 Alcohol abuse, uncomplicated
CPT/HCPCS: 70450; 71045; 72125; 80053; 80307; 82077; 84425; 84484; 85025; 87040; 87631; 93005; 96361; 96365; 96368; 99285; J7030; A4216; J3490